=== PATIENT | female | born 1960 | race Caucasian/White ===

== ENCOUNTER 2019-06-26 22:43 | Emergency (ER) | payer MEDICAID ==
[~2019-06-26] VITALS: Ht 172.7 cm; Wt 83.7 kg
[2019-06-26 22:48] VITALS: BP 135/90
--- NOTE | 2019-06-26 23:04 | NUR ---
THIS IS A 59 YO FEMALE COMING IN FOR LEFT HAND "SLIVERS". PATIENT STATES SHE WAS CUTTING THORN [place] LAST WEEK AND GOT SLIVERS IN HER HAND. MULTIPLE LESIONS ON LEFT HAND NOTED, WARM TO TOUCH AND SWOLLEN. CSM IN TACT. DENIES NEEDS AT THIS TIME. CALL LIGHT IN REACH. PA TO ROOM.
[2019-06-26] MEDS ORDERED: DIPH,PERTUSS(ACELL),TET VAC/PF 0.5 ML IM-VACC ONE ×2 (23:07→23:30)
[2019-06-26] MEDS ORDERED: CEPHALEXIN 500 MG CAPSULE ONE (23:14)
[2019-06-26] MEDS ORDERED: SULFAMETH./TRIMETHOPRIM DS 800MG/160MG TABLET ONE (23:14)
--- NOTE | 2019-06-26 23:20 | NUR ---
PATIENT MEDICATED PER EMAR, TOLERATED WELL. DENIES NEEDS AT THIS TIME.
[2019-06-26] MEDS ORDERED: SULFAMETH./TRIMETHOPRIM DS 800MG/160MG TABLET PO ONE (23:30)
[2019-06-26] MEDS ORDERED: CEPHALEXIN 500 MG CAPSULE PO ONE (23:30)
== END 2019-06-27 00:23 | disposition home or self-care (01) ==
LOC: ED 23:59
DX: L03.114 Cellulitis of left upper limb (principal); L03.113 Cellulitis of right upper limb; L03.012 Cellulitis of left finger; J44.9 Chronic obstructive pulmonary disease, unspecified
CPT/HCPCS: 90471; 90715; 99283

== ENCOUNTER 2020-02-03 00:18 | Emergency (ER) | payer MEDICAID ==
[~2020-02-03] VITALS: Ht 172.7 cm; Wt 87.6 kg
[2020-02-03 00:21] VITALS: BP 165/102
[2020-02-03] MEDS ORDERED: KETOROLAC 60 MG/2 ML IM ONE (01:00)
[2020-02-03] MEDS ORDERED: HYDROcodone/APAP 5/325 TABLET PO ONE (01:00)
[2020-02-03] MEDS ORDERED: KETOROLAC 60 MG/2 ML ONE (01:10)
--- NOTE | 2020-02-03 01:10 | NUR ---
Pt in CT.
[2020-02-03] MEDS ORDERED: HYDROcodone/APAP 5/325 TABLET ONE (01:11)
--- NOTE | 2020-02-03 01:20 | NUR ---
Pt returned from CT. Pt medicated per AUG. Pt on pulse ox/HR monitor.
--- NOTE | 2020-02-03 01:55 | NUR ---
Pt reports improvement in pain after med peds.
== END 2020-02-03 02:08 | disposition home or self-care (01) ==
LOC: ED 00:48
DX: M54.16 Radiculopathy, lumbar region (principal); M54.5 Low back pain
CPT/HCPCS: 72131; 96372; 99284; J1885

== ENCOUNTER 2021-03-09 01:05 | Emergency (ER) | payer MEDICAID ==
[~2021-03-09] VITALS: Ht 172.7 cm; Wt 78.8 kg
[2021-03-09 01:14] VITALS: BP 116/69
[2021-03-09] MEDS ORDERED: DEXAMETHASONE 4 MG TABLET PO ONE (03:00)
--- NOTE | 2021-03-09 06:15 | NUR ---
NA X 1
--- NOTE | 2021-03-09 06:40 | NUR ---
NA X 2
--- NOTE | 2021-03-09 06:52 | NUR ---
Arlene isaacs in [facility] - 03/09/21 at 0653 by VERA PT TO ROOM FROM NATHAN
--- NOTE | 2021-03-09 06:53 | NUR ---
PT LEFT AMA
== END 2021-03-09 06:55 | disposition left against medical advice (07) ==
LOC: ED 06:49
DX: R05 Cough (principal); Z20.822 Contact with and (suspected) exposure to COVID-19
CPT/HCPCS: 71045; 99284; U0003; U0005; 99283